=== PATIENT | male | born 1960 | race Caucasian/White ===

== ENCOUNTER → 2016-12-06 | Outpatient (CLI) | payer BC ==
[~2016-12-06] MED LIST: ACET-1138 PO; ASPEC81 PO; IBUP1TAB51 PO; ONDA8TAB6 PO; OXYC1TAB3 PO; RXC5 PO; SNK PO
--- NOTE | 2016-12-06 12:46 | DIAGNOSTIC IMAGING REPORT ---
CHEST 2 VIEWS ROUTINE CLINICAL HISTORY: Z01.812 chest pain COMPARISON STUDY: No previous studies for comparison. FINDINGS: The bones soft tissues and hemidiaphragms are normal. The cardiomediastinal silhouette is normal. The lungs are clear. The pulmonary vasculature is normal. IMPRESSION: Negative chest. Electronically signed by: Vinicius Morris M.D. 12/06/2016 12:45 PM Dictated Date/Time: 12/06/2016 12:44 PM
[2016-12-06 13:07] LABS: BASO % 0.6 %; BASO ABS # 0.04 K/uL (0-0.2); COMPLETE YES; EOS % 3.1 %; HEMATOCRIT 46.3 % (42-52); IG% 0.3 %; LYMPH % 26.7 %; LYMPH ABS # 1.83 K/uL (1.2-3.4); MEAN CELL VOLUME 91.7 fL (80-100); MEAN CORPUSCULAR HEMOGLOBIN 31.7 pg (25-34); MEAN CORPUSCULAR HGB CONC 34.6 g/dl (32-36); MEAN PLATELET VOLUME 10.3 fL (7.4-10.4); MONO % 8.5 %; NEUT % 60.8 %; PLATELET COUNT 251 K/uL (130-400); RED BLOOD COUNT 5.05 M/uL (4.7-6.1); WHITE BLOOD COUNT 6.86 K/uL (4.8-10.8)
[2016-12-06 13:13] LABS: URINE APPEARANCE CLEAR (CLEAR); URINE BILIRUBIN NEG (NEG); URINE COLOR YELLOW; URINE NITRITE NEG (NEG); URINE SPECIFIC GRAVITY 1.018 (1.000-1.030); UROBILINOGEN NEG (NEG); ZZUR CULT IF INDIC CLEAN CATCH NO
[2016-12-06 13:15] LABS: PROTHROMBIN TIME (PATIENT) 10.6 SECONDS (9.0-12.0)
[2016-12-06 13:19] LABS: MANUAL MICROSCOPIC REQUIRED? NO; REVIEW REQ? NO
[2016-12-06 13:24] LABS: BLOOD UREA NITROGEN 17 mg/dl (7-18); CARBON DIOXIDE 27 mmol/L (21-32); CHLORIDE 107 mmol/L (98-107); CREATININE 0.93 mg/dl (0.60-1.40); POTASSIUM 4.3 mmol/L (3.5-5.1); SODIUM 142 mmol/L (136-145)
== END | disposition home or self-care (01) ==
LOC: C.CPL 11:58
PROVIDERS: ATTEND Orthopaedic Surgery
DX: Z01.812 Encounter for preprocedural laboratory examination (principal)

== ENCOUNTER 2016-12-20 09:01 | Inpatient (IN) | payer BC ==
[2016-12-08 16:14] VITALS: BMI 38.0
[~2016-12-20] VITALS: Ht 160 cm; Wt 98.6 kg
[2016-12-20] VITALS (7 sets, daily range): BP systolic 95–146; BP diastolic 57–96; PULSE 61–84; TEMP 36.3–36.8; O2SAT 95–98; Ht 160 cm; Wt 98.6 kg
[2016-12-20] MEDS: TRANEXAMIC ACID INJ 1,000 MG in SODIUM CHLORIDE 0.9% 100ML 100 ML IV SCH ×2 (06:30→12:07)
[~2016-12-20 09:01] MED LIST changes: -ACET-1138 PO; +ACETAMINOPHEN 500 MG TAB PO SCH; -ASPEC81 PO; +BUPIVACAINE 0.5 % 5 MG/1 ML PF 10ML VIAL ONE; +CEFAZOLIN 2000 MG/60 ML D5W 60 ML IV SCH; +DEXAMETHASONE 4 MG TAB PO SCH; +FAMOTIDINE 20 MG TAB PO SCH; +GABAPENTIN 300 MG CAP PO SCH; +LACTATED RINGER'S 1000ML 1,000 ML IV SCH; +LACTATED RINGER'S 1000ML IV SCH; +METOCLOPRAMIDE HCL 10 MG TAB PO SCH; -ONDA8TAB6 PO; -OXYC1TAB3 PO; +OXYCODONE HCL 10 MG TABCR (OXYCONTIN) PO SCH; +POLYMYXIN B SULFATE 100,000 UNITS in NSS 100ML IR SCH; +ROPIVACAINE 5MG/ML 30 ML 150 MG, BUPIVACAINE/EPINEPHR 0.5% MPF 30 ML, KETOROLAC TROMETH... INFIL SCH; -RXC5 PO; -SNK PO; +VANCOMYCIN INJ 400 MG in NSS 100ML IR SCH
--- NOTE | 2016-12-20 11:02 | History & Physical Bridge Note ---
H&P Re-Evaluation Bridge Note: I have examined the patient, reviewed the History & Physical and in the interval since the performance of the History & Physical I have noted the following changes of clinical significance: No changes noted
[2016-12-20] MEDS ORDERED: MIDAZOLAM HCL 1 MG/ML 2ML VIAL ONE ×2 (11:25→12:18)
[2016-12-20] MEDS ORDERED: BACITRACIN 50000 UNIT VIAL ONE (11:36)
[2016-12-20] MEDS ORDERED: POVIDONE-IODINE OP SOLN 30 ML BTL ONE (11:36)
[2016-12-20] MEDS ORDERED: ORTHO JOINT ANESTHETIC ONE (11:36)
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
[2016-12-20] MEDS ORDERED: PHENYLEPHRINE 100MCG/ML 5ML SYR IV PRN (12:15)
[2016-12-20] MEDS ORDERED: EpHEDrine SULFATE INJ 50 MG/ML AMP IV PRN (12:15)
[2016-12-20] MEDS ORDERED: HYDROmorphone INJ 2 MG/ML SYR/VIAL IV PRN (12:15)
[2016-12-20] MEDS ORDERED: ATROPINE SULFATE 0.1 MG/ML 5ML SYR IV PRN (12:15)
[2016-12-20] MEDS ORDERED: KETOROLAC TROMETHAMINE 30 MG/ML VIAL IV. PRN (12:15)
[2016-12-20] MEDS ORDERED: ONDANSETRON INJ 2 MG/ML 2 ML VIAL IV PRN ×2 (12:15→14:00)
[2016-12-20] MEDS ORDERED: FENTANYL CITRATE INJ 50 MCG/1 ML 2 ML VIAL ONE (12:18)
[2016-12-20] MEDS ORDERED: LIDOCAINE HCL 2% 2 ML VIAL (20MG/ML) ONE (12:36)
[2016-12-20] MEDS ORDERED: PROPOFOL IV EMULSION 10 MG/ML 20 ML VIAL IV ONE (12:36)
[2016-12-20] MEDS ORDERED: ONDANSETRON INJ 2 MG/ML 2 ML VIAL ONE (12:54)
[2016-12-20] MEDS ORDERED: PHENYLEPHRINE HCL INJ 10 MG/ML VIAL ONE (13:40)
--- NOTE | 2016-12-20 13:49 | [facility] Post Operative Brief Note ---
Immediate Operative Summary Operative Date December 20, 2016. Pre-Operative Diagnosis Degenerative joint disease Left hip Post-Operative Diagnosis Degenerative joint disease Left hip Procedure(s) Performed Left Total Hip Arthroplasty, Direct Anterior Approach Uncemented Surgeon Dr. Calloway Fiberglass Tube Molder Surgeon(s) Avril Liang Estimated Blood Loss 75 ML Findings DJD Specimens A: Left Femoral Head Complication(s) None Disposition Recovery Room / PACU
[2016-12-20] MEDS ORDERED: METOCLOPRAMIDE HCL INJ 5 MG/ML 2 ML VIAL IV PRN (14:00)
[2016-12-20] MEDS ORDERED: SOD PHOSPHATE/SOD BIPHOSPHATE ENEMA 132 ML BTL PR PRN (14:00)
[2016-12-20] MEDS ORDERED: BISACODYL 10 MG SUPP PR PRN (14:00)
[2016-12-20] MEDS ORDERED: ALUMINUM/MAGNESIUM/SIMETH (MAALOX MAX) 30 ML UDC PO PRN (14:00)
[2016-12-20] MEDS ORDERED: MAGNESIUM HYDROXIDE SUSP 30 ML UDC PO PRN (14:00)
[2016-12-20] MEDS ORDERED: DiphenhydrAMINE HCL 50 MG/ML VIAL IV PRN (14:00)
[2016-12-20] MEDS ORDERED: ZOLPIDEM TARTRATE 5 MG TAB PO PRN (14:00)
--- NOTE | 2016-12-20 14:03 | DIAGNOSTIC IMAGING REPORT ---
LEFT HIP UNILATERAL 1 VIEW CLINICAL HISTORY: Left hip arthroplasty COMPARISON STUDY: No previous studies for comparison. FINDINGS: A single intraoperative fluoroscopic spot image is provided for interpretation. 12.5 seconds of fluoroscopic time was utilized. There are postsurgical changes of a total left hip arthroplasty. No dislocation is evident. IMPRESSION: Intraoperative radiograph demonstrating a total left hip arthroplasty Electronically signed by: Randy Varghese M.D. 12/20/2016 2:01 PM Dictated Date/Time: 12/20/2016 2:01 PM
--- NOTE | 2016-12-20 15:05 | Anesthesiology Progress Note ---
Anesthesia Post Op Note Date & Time December 20, 2016 at 15:05 Vital Signs Pain Intensity: 0 Vital Signs Past 12 Hours Date Time Temp Pulse Resp B/P Pulse Ox O2 Delivery O2 Flow Rate FiO2 12/20/16 15:00 72 13 101/67 98 Nasal Cannula 2 12/20/16 14:50 66 12 105/67 97 Nasal Cannula 2 12/20/16 14:40 65 18 101/65 99 Nasal Cannula 2 12/20/16 14:30 65 9 92/69 96 Nasal Cannula 2 12/20/16 14:20 76 10 104/64 96 Nasal Cannula 2 12/20/16 14:14 36.1 78 16 103/66 97 Nasal Cannula 2 12/20/16 09:31 36.8 81 20 146/96 97 Room Air Notes Mental Status: alert / awake / arousable, participated in evaluation Pt Amnestic to Procedure: Yes Nausea / Vomiting: adequately controlled Pain: adequately controlled Airway Patency, RR, SpO2: stable & adequate BP & HR: stable & adequate Hydration State: stable & adequate Anesthetic Complications: no major complications apparent
--- NOTE | 2016-12-20 15:14 | DIAGNOSTIC IMAGING REPORT ---
LEFT PELVIS/UNILATERAL HIP 1 VIEW CLINICAL HISTORY: Postoperative evaluation. COMPARISON: None FINDINGS: Alignment of the total left hip arthroplasty is anatomic. There is no periprosthetic fracture or unexpected radiopaque foreign body. There is surgical drain and acetabular screw. Heterotopic ossification/myositis ossificans adjacent to the right hip is noted. There is chronic deformity of visualized portions of the right femur which suggest old trauma. IMPRESSION: Expected findings following total left hip arthroplasty. Electronically signed by: Damian Gilliam M.D. 12/20/2016 3:13 PM Dictated Date/Time: 12/20/2016 3:10 PM
[2016-12-20] MEDS: D5W AND 1/2NSS + 20MEQ KCL 1,000 ML IV SCH (17:22)
[2016-12-20] MEDS: ACETAMINOPHEN 500 MG TAB PO SCH (17:24)
[2016-12-20] MEDS: TRAMADOL HCL 50 MG TAB PO PRN (19:13)
[2016-12-20] MEDS ORDERED: TRANEXAMIC ACID INJ 1,000 MG in SODIUM CHLORIDE 0.9% 100ML 100 ML IV SCH (20:00)
[2016-12-20] MEDS: CEFAZOLIN IV 2,000 MG in DEXTROSE 5% 50ML 50 ML IV SCH (20:31)
[2016-12-20] MEDS: ASPIRIN 81 MG ECTAB PO SCH (20:33)
[2016-12-20] MEDS: KETOROLAC TROMETHAMINE 30 MG/ML VIAL IV. SCH (20:33)
[2016-12-20] MEDS: OXYCODONE HCL IR 5 MG TAB (IMMEDIATE RELEASE) PO PRN (20:34)
[2016-12-20] MEDS ORDERED: SENNA 8.6 MG TAB PO SCH (21:00)
[2016-12-21] MEDS: ACETAMINOPHEN 500 MG TAB PO SCH ×2 (00:01→07:27)
[2016-12-21 00:05] VITALS: BP 149/63
[2016-12-21] MEDS: KETOROLAC TROMETHAMINE 30 MG/ML VIAL IV. SCH ×3 (01:37→13:31)
[2016-12-21] MEDS: D5W AND 1/2NSS + 20MEQ KCL 1,000 ML IV SCH ×2 (01:38→11:45)
[2016-12-21] MEDS: OXYCODONE HCL IR 5 MG TAB (IMMEDIATE RELEASE) PO PRN ×4 (01:39→14:31)
[2016-12-21 03:41] VITALS: BP 100/48; PULSE 65; TEMP 36.7; O2SAT 99
[2016-12-21] MEDS: CEFAZOLIN IV 2,000 MG in DEXTROSE 5% 50ML 50 ML IV SCH (03:47)
[2016-12-21 05:38] LABS: BASO % 0.1 %; BASO ABS # 0.01 K/uL (0-0.2); COMPLETE YES; EOS % 0.1 %; HEMATOCRIT 37.6 % (42-52); IG% 0.3 %; LYMPH % 7.1 %; LYMPH ABS # 1.08 K/uL (1.2-3.4); MEAN CELL VOLUME 90.4 fL (80-100); MEAN CORPUSCULAR HEMOGLOBIN 30.8 pg (25-34); MEAN PLATELET VOLUME 9.7 fL (7.4-10.4); MONO % 6.4 %; PLATELET COUNT 250 K/uL (130-400); RED BLOOD COUNT 4.16 M/uL (4.7-6.1); WHITE BLOOD COUNT 15.27 K/uL (4.8-10.8)
[2016-12-21 06:02] LABS: BUN/CREATININE RATIO 17.1 (10-20); CALCIUM 7.8 mg/dl (8.5-10.1); CREATININE 1.1 mg/dl (0.60-1.40); POTASSIUM 4.5 mmol/L (3.5-5.1)
[2016-12-21 07:30] VITALS: O2SAT 99
[2016-12-21] MEDS ORDERED: ACET-1138 PO (07:44)
[2016-12-21] MEDS ORDERED: SNK PO (07:44)
[2016-12-21] MEDS ORDERED: ONDA8TAB6 PO (07:44)
[2016-12-21] MEDS ORDERED: RXC5 PO (07:44)
[2016-12-21] MEDS ORDERED: ASPEC81 PO (07:44)
--- NOTE | 2016-12-21 07:45 | Discharge Instructions ---
Discharge Instructions Date of Service December 21, 2016. Admission Reason for Admission: Left Hip Degenerative Arthritis Discharge Discharge Diagnosis / Problem: SP LEFT JL Discharge Goals Goal(s): Decrease discomfort, Improve function, Increase independence Activity Recommendations Activity Limitations: per Instructions/Follow-up section . Instructions / Follow-Up Instructions / Follow-Up ACTIVITY RECOMMENDATIONS: SELF CARE INSTRUCTIONS AFTER TOTAL HIP REPLACEMENT : Direct Anterior Approach Until the incision and soft tissues around your hip have healed, there is a possibility that the hip prosthesis could dislocate. A. Hip flexion ( Up & Down out of chair or steps ) may be difficult. This is normal. B. Numbness in front of the thigh is also normal for a few weeks. C. Use hand rails when walking on stairs. D. Wear low heeled shoes with non-slip soles. E. Be sure that your floors are free of things that could trip you - throw rugs , electrical cords, small objects. Avoid wet and waxed floors, especially with crutches and canes. F. Try to walk several times a day with rest periods between. G. Continue with all the exercises taught to you in the hospital. Again, make walking a part of your daily routine. SPECIAL CARE INSTRUCTIONS: VERY IMPORTANT TO READ AND REVIEW A. You may still be at risk for phlebitis and blood clots. 1. Wear surgical stockings (MOJGAN hose) for 2 weeks after surgery to improve circulation and reduce swelling. 2. Take Aspirin 81mg twice daily for 4 weeks or as directed by your doctor. This is your blood thinner. 3. High risk patients may be prescribed a stronger blood thinner if necessary. 4. If you are on Coumadin normally, your family doctor/correspondence specialist should monitor your blood work. Expect a phone call the day of or the day after bloodwork is drawn to adjust your dosage. B. You must take antibiotics before having dental work, bladder, bowel and other surgery. Your doctor will provide you with a permanent card to carry describing precautions. C. Call [facility] if you have a fever, redness or swelling around the incision, cloudy drainage from incision, or sudden increase in pain in your hip, not relieved by your regular pain medication. D. Please call the office at if you have any concerns or questions about your operation or recovery. * YOU MAY SHOWER, NO TUB BATHS UNTIL CLEARED BY YOUR DOCTOR. - Keep an extra close eye on the top portion of your incision. Be sure to keep clean & dry. * WEAR MOJGAN HOSE 20 HOURS PER DAY FOR 2 WEEKS. * YOU MAY PROGRESS FROM A WALKER, TO A CANE, TO INDEPENDENT AT YOUR OWN PACE. * MOST PATIENTS WILL HAVE HOME NURSING FOR THERAPY. IF YOU DECIDE TO DO OUTPATIENT PHYSICAL THERAPY, PLEASE SCHEDULE THIS 3 TIMES PER WEEK. * DERMABOND Prineo- This is a mesh tape dressing that is covered with glue. It should remain in place until the incision is properly healed, usually 10-14 days. This dressing is designed to naturally slough off. You may trim the excess mesh tape as it peels off. Incision may be briefly wet in a shower. Dry immediately by blotting with a clean, dry towel. Do not bath or swim until instructed by your doctor. Do not scratch, rub, or pick at the dressing. Do not apply any topical ointments or lotions until dressing is completely removed and/or instructed by your doctor. There may be a small piece of suture material at one end of your incision. Do not pull or trim this. If it is bothersome or catching on clothing, you may cover it with a band-aid. FOLLOW UP VISIT: If appointment is not already scheduled: Please call [facility] to make a follow-up appointment for 2 weeks after your surgery at . Current Hospital Diet Patient's current hospital diet: Regular Diet Discharge Diet Recommended Diet: Regular Diet Procedures Procedures Performed: Left Total Hip Arthroplasty, Direct Anterior Approach Uncemented Pending Studies Studies pending at discharge: no Medical Emergencies . Who to Call and When: Medical Emergencies: If at any time you feel your situation is an emergency, please call 911 immediately. . Non-Emergent Contact Non-Emergency issues call your: Surgeon . "Provider Documentation" section prepared by Avril Aguilera. . VTE Core Measure Inpt VTE Proph given/why not?: Other Anticoagulation, T.E.D. Stockings, SCD's [place] Drug Monitoring Program Search Results: patient reviewed within database, no issues identified
--- NOTE | 2016-12-21 07:45 | Orthopedic Progress Note ---
Orthopedic Progress Note Date of Service December 21, 2016. Subjective Post OP Day: 1 (L JL ) Reports: feeling well, pain controlled w PO medications, Denies: SOB, chest pain , complaints, light headedness, nausea / vomiting Objective calves soft nontender, N/V intact, hip located, incision C/D/I, A&O x3, toes mobile Date Time Temp Pulse Resp B/P Pulse Ox O2 Delivery O2 Flow Rate FiO2 12/21/16 03:41 36.7 65 15 100/48 99 Room Air 12/21/16 00:05 149/63 12/20/16 23:07 36.6 64 16 99/61 95 Room Air 64 95/57 12/20/16 18:55 36.8 84 18 119/77 98 Nasal Cannula 2.0 12/20/16 17:52 36.5 66 18 108/73 98 Nasal Cannula 2.0 12/20/16 17:02 36.6 61 18 116/72 98 Nasal Cannula 2.0 12/20/16 16:20 36.4 66 18 121/78 97 Nasal Cannula 2.0 12/20/16 15:50 Nasal Cannula 2.0 12/20/16 15:50 97 Nasal Cannula 2.0 12/20/16 15:50 36.3 65 18 140/66 97 Nasal Cannula 2.0 12/20/16 15:40 36.5 52 17 95/64 98 Nasal Cannula 2 12/20/16 15:30 61 17 98/61 97 Nasal Cannula 2 12/20/16 15:20 59 12 100/60 97 Nasal Cannula 2 12/20/16 15:10 61 14 100/64 96 Nasal Cannula 2 12/20/16 15:00 72 13 101/67 98 Nasal Cannula 2 12/20/16 14:50 66 12 105/67 97 Nasal Cannula 2 12/20/16 14:40 65 18 101/65 99 Nasal Cannula 2 12/20/16 14:30 65 9 92/69 96 Nasal Cannula 2 12/20/16 14:20 76 10 104/64 96 Nasal Cannula 2 12/20/16 14:14 36.1 78 16 103/66 97 Nasal Cannula 2 12/20/16 11:55 Room Air 12/20/16 09:31 36.8 81 20 146/96 97 Room Air Laboratory Results 24 Hours: Test 12/21/16 05:24 White Blood Count 15.27 K/uL Red Blood Count 4.16 M/uL Hemoglobin 12.8 g/dL Hematocrit 37.6 % Mean Corpuscular Volume 90.4 fL Mean Corpuscular Hemoglobin 30.8 pg Mean Corpuscular Hemoglobin Concent 34.0 g/dl Platelet Count 250 K/uL Mean Platelet Volume 9.7 fL Neutrophils (%) (Auto) 86.0 % Lymphocytes (%) (Auto) 7.1 % Monocytes (%) (Auto) 6.4 % Eosinophils (%) (Auto) 0.1 % Basophils (%) (Auto) 0.1 % Neutrophils # (Auto) 13.15 K/uL Lymphocytes # (Auto) 1.08 K/uL Monocytes # (Auto) 0.97 K/uL Eosinophils # (Auto) 0.01 K/uL Basophils # (Auto) 0.01 K/uL Assessment & Plan Assessment: POD 1 JL Plan: HOME W [facility] Inhouse Planning Pain Management: PO Tylenol, Oxy IR DVT Prophylaxis: TEDs, SCDs, ASA Discharge Planning Discharge Planning: home with home health Pain Management: PO Tylenol, Oxy IR DVT Prophylaxis: TEDs, ASA
[2016-12-21 08:05] VITALS: BP 138/92; PULSE 64; TEMP 36.5; O2SAT 99
[2016-12-21 08:21] VITALS: O2SAT 99
[2016-12-21] MEDS: ASPIRIN 81 MG ECTAB PO SCH (08:55)
[2016-12-21] MEDS: TRAMADOL HCL 50 MG TAB PO PRN (08:56)
[2016-12-21] MEDS ORDERED: MULTIVITAMIN TAB PO SCH (09:00)
[2016-12-21] MEDS ORDERED: PANTOprazole SOD 40 MG TAB PO SCH (09:00)
--- NOTE | 2016-12-21 09:39 | OPERATIVE REPORT ---
DATE OF OPERATION: 12/20/2016 PREOPERATIVE DIAGNOSIS: Degenerative arthritis, left hip. POSTOPERATIVE DIAGNOSIS: Same. PROCEDURE: Left total hip replacement. SURGEON: Jamal Calloway MD WOOL SAMPLER: RICKEY Pelayo ANESTHESIA: Spinal. BLOOD LOSS: 75 mL. REPLACEMENT FLUIDS: 1500 mL crystalloid. DRAINS: Hemovacs x1. CULTURES: None. COMPLICATIONS: None. COMPONENTS USED: Fox \T\ Nephew Polar hip system: Acetabulum size 52, femur size 2 standard offset, femoral head 0, neck length 36 mm. NOTE: RICKEY Pelayo was present and assisted throughout due to the complicated nature of this case. She helped with preparation and set up, first assisted throughout and personally closed the fascial, subcutaneous and skin layers and applied the postoperative dressing. DESCRIPTION OF PROCEDURE: Following satisfactory spinal, the patient was supine. The left leg was placed in the traction device and the right leg in the well leg aldridge. The left leg was prepared with ChloraPrep and draped sterilely. Following a surgical time-out, an anterior approach was performed in the interval between the sartorius and tensor muscles. The circumflex femoral vessels were identified and ligated. An anterior capsulotomy was performed exposing an arthritic femoral neck and head. Femoral neck and head were trimmed and removed. The acetabular self-retraining retractor was placed. Acetabular preparation was completed with reaming and removal of a few inferior osteophytes. Under fluoroscopic guidance, a 52 shell was impacted into an anatomic position and secured with a dome screw. Local anesthetic was placed and after irrigation, the polyethylene liner was placed. The femur was placed in a position of external rotation, extension and adduction. Femoral canal was prepared up to the size 2. Intraoperative fluoroscopy with a 0 neck length head showed good fit and fill of the proximal canal and pentecostal of leg lengths using fluoroscopic landmarks. The hip was dislocated. The trial component was removed. The final implant was placed and the hip was reduced. A Betadine soak was performed and fluoroscopy confirmed the position. After 3 minutes, the Betadine was irrigated. The capsule was closed with 1-0 Vicryl interrupted. A drain was placed. The fascia was closed with a running suture of #1 Vicryl, the subcutaneous tissues with 2-0 Vicryl and the skin with a running subcuticular stitch of 3-0 V-Loc. Dermabond and a dry dressing were applied. The patient was returned to his bed in stable condition. I attest to the content of the Intraoperative Record and any orders documented therein. Any exceptions are noted below. MTDD
[2016-12-21 12:00] VITALS: BP 118/70; PULSE 66; TEMP 36.5; O2SAT 96
--- NOTE | 2016-12-22 22:39 | DISCHARGE SUMMARY ---
DISCHARGE DIAGNOSIS: Degenerative joint disease, left hip. SECONDARY DIAGNOSIS: Osteoarthritis. CONSULTS: None. COMPLICATIONS: None. PROCEDURES: Left total hip arthroplasty, direct anterior by Dr. Jamal Calloway on 12/20/2016. BRIEF HISTORY: As dictated in the history and physical. HOSPITAL SUMMARY: The patient was admitted on the above-noted date and had the above-noted surgery performed which he tolerated well. On the first postoperative day, he was feeling well, pain was controlled and had no complaints. Calves were soft and nontender. Neurovascularly intact. Hip was located. Incision was clean, dry and intact. Toes were mobile. Vital signs were stable. He was afebrile. Hemoglobin was 12.8 and he was started on physical therapy protocol and continued on DVT prophylaxis and pain management. He was progressing well with his PT, remaining stable and it was felt he could be discharged to home with [facility] health services. For further review, please see chart. LABORATORY AND X-RAY DATA: As per chart. DISCHARGE INSTRUCTIONS: The patient was discharged to home in satisfactory condition on 12/21/2016. DIET: Regular. ACTIVITY: Follow JL instruction sheets and special care instructions as noted. Follow up with Dr. Calloway in 2 weeks. The patient to call for appointment if one has not been made for you. DISCHARGE MEDICATIONS: Acetaminophen 1000 mg p.o. q. 8 hours, aspirin 81 mg p.o. b.i.d., Zofran 8 mg p.o. q. 8 hours p.r.n., oxycodone 5-10 mg p.o. q. 4 hours p.r.n. and senna 17.2 mg p.o. at bedtime. Stop taking ibuprofen/famotidine.
[2016-12-26] MEDS ORDERED: OXYC1TAB3 PO (09:39)
== END 2016-12-21 15:01 | disposition home health service (06) | DRG 470 ==
LOC: ENRESERVDT → ENRESERVTM → C.ACU 09:01 → C.3E 09:25
PROVIDERS: ADMIT Orthopaedic Surgery; ATTEND Orthopaedic Surgery
PROC: 0SRB0JA Replacement of Left Hip Joint with Synthetic Substitute, Uncemented, Open Approach (ICD-10-PCS; principal; 2016-12-20 11:45)
DX: M16.12 Unilateral primary osteoarthritis, left hip (principal)